=== PATIENT | female | born 1985 | race Caucasian/White ===

== ENCOUNTER 2018-10-09 07:25 | Day surgery (SDC) | payer BC, OTHER ==
[~2018-10-09] VITALS: Ht 157.5 cm; Wt 66.4 kg
[2018-10-09] MEDS ORDERED: NO HOME MEDS (08:51)
[2018-10-09 08:56] VITALS: Ht 157.5 cm; Wt 66.4 kg
[2018-10-09 09:19] VITALS: BP 119/82; PULSE 68; RESP 18
[2018-10-09] MEDS ORDERED: MIDAZOLAM 1 MG/ML 2 ML INJ ONE ×2 (09:55)
[2018-10-09] MEDS ORDERED: FENTAnyl 50 MCG/ML VIAL ONE (09:56)
[2018-10-09 10:10] VITALS: BP 117/58; PULSE 62; RESP 22
== END 2018-10-09 12:02 | disposition home or self-care (01) ==
LOC: GIL 07:25
PROVIDERS: ATTEND Internal Medicine Gastroenterology
DX: K64.8 Other hemorrhoids (principal); K63.89 Other specified diseases of intestine
CPT/HCPCS: 45378; 84703; J2250; J3010; Z7610